=== PATIENT | female | born 1955 | race Caucasian/White ===

== ENCOUNTER 2021-02-16 11:21 | Inpatient (IN) | payer MEDICAID, OTHER ==
[~2021-02-16] VITALS: Ht 165.1 cm; Wt 103.9 kg
--- NOTE | 2021-02-16 11:45 | NUR ---
REJI FROM [facility]. TO ER BED 12. AAOX4. NOT IN RESP DISTRESS. BROUGHT IN FOR BILAT LOWER EXTREMETIES WEEPING EDEMA. PT WAS SENT BY PMD FOR FURTHER EVALUATION. NOTED @ 4 EDEMA WITH CLEAR FLUID WEEPING. AT BEDSIDE FOR EVAL. AWAITING ORDERS
[2021-02-16] MEDS ORDERED: CLINDAMYCIN 600 MG in IV D5W 100 ML IV ONE (12:00)
[2021-02-16] MEDS ORDERED: FUROSEMIDE 40 MG/4 ML VIAL IV ONE (12:00)
[2021-02-16] MEDS ORDERED: FURO-144 PO (12:10)
[2021-02-16] MEDS ORDERED: ATOR80TA PO (12:10)
[2021-02-16] MEDS ORDERED: OMEG1CAP55 PO (12:10)
[2021-02-16] MEDS ORDERED: MAG-55 PO (12:10)
[2021-02-16] MEDS ORDERED: CARV12.5 PO (12:10)
[2021-02-16] MEDS ORDERED: CALC-853 PO (12:10)
[2021-02-16] MEDS ORDERED: TRAM50TA2 PO ×2 (12:10)
[2021-02-16] MEDS ORDERED: LORA-259 PO (12:10)
[2021-02-16] MEDS ORDERED: CLOP75TA15 PO (12:10)
[2021-02-16] MEDS ORDERED: SPIR25TA6 PO (12:10)
[2021-02-16] MEDS ORDERED: DOCU-141 PO (12:10)
[2021-02-16] MEDS ORDERED: LOSA25TA27 PO (12:10)
[2021-02-16] MEDS ORDERED: ASCO500C17 PO (12:10)
[2021-02-16] MEDS ORDERED: BISA10SU11 RC (12:10)
[2021-02-16] MEDS ORDERED: MAGN400O6 PO (12:10)
[2021-02-16] MEDS ORDERED: ASPI-1169 PO (12:10)
[2021-02-16] MEDS ORDERED: BIOT1CAP3 PO (12:10)
[2021-02-16] MEDS ORDERED: LEVO500T90 PO (12:10)
[2021-02-16] MEDS ORDERED: AMIN887L PO (12:10)
[2021-02-16] MEDS ORDERED: CYAN-51 PO (12:10)
[2021-02-16] MEDS ORDERED: NA P133E RC (12:10)
[2021-02-16] MEDS ORDERED: INSU100V3 IJ (12:10)
[2021-02-16] MEDS ORDERED: CRAN425C6 PO (12:10)
[2021-02-16] MEDS ORDERED: LOPE2TAB25 PO (12:10)
[2021-02-16] MEDS ORDERED: CHOL200013 PO (12:10)
[2021-02-16] MEDS ORDERED: ZINC220C6 PO (12:10)
[2021-02-16] MEDS ORDERED: MIRT-121 PO (12:10)
[2021-02-16] MEDS ORDERED: MULT-447 PO (12:10)
[2021-02-16] MEDS ORDERED: SACC250C PO (12:10)
[2021-02-16] MEDS ORDERED: FUROSEMIDE 40 MG/4 ML VIAL ONE (12:19)
[2021-02-16 12:21] LABS: BASOPHILS % (AUTO) 0.3 % (0.0-2.0); EOSINOPHILS % (AUTO) 0.5 % (0.0-6.0); HEMATOCRIT 39 % (33-45); HEMOGLOBIN 12.2 g/dL (11.5-14.8); LYMPHOCYTES # (AUTO) 0.6 /CMM (0.8-4.8); LYMPHOCYTES % (AUTO) 10.3 % (20.0-44.0); MEAN CORPUSCULAR HGB CONC 31 g/dl (31.0-36.0); MEAN CORPUSCULAR VOLUME 88 fL (82-100); MONOCYTES # (AUTO) 0.4 /CMM (0.1-1.30); MONOCYTES % (AUTO) 7.6 % (2.0-12.0); NEUTROPHILS # (AUTO) 4.7 /CMM (1.8-8.9); NEUTROPHILS % (AUTO) 81.3 % (43.0-81.0); PLATELET COUNT (AUTO) 202 /CMM (150-450); RED BLOOD CELL COUNT(AUTO) 4.44 MIL/uL (4.0-5.2); WHITE BLOOD COUNT (AUTO) 5.7 K/uL (4.3-11.0)
[2021-02-16 12:28] LABS: CALCIUM, SERUM 9.1 mg/dL (8.5-10.1); CREATININE 1.2 mg/dL (0.6-1.3); POTASSIUM 3.9 mmol/L (3.5-5.1)
--- NOTE | 2021-02-16 12:57 | NUR ---
CALLED [facility].
--- NOTE | 2021-02-16 13:17 | NUR ---
COVID SWAB DONE AND SENT TO LAB
--- NOTE | 2021-02-16 13:21 | NUR ---
PT AMBULATED TO BATHROOM AND GOT SOB AND SATTING @ 91% AFTER SHE GOT BACK IN BED. PLACED ON 02 VIA NC @ 2LPM. AWARE
--- NOTE | 2021-02-16 13:49 | NUR ---
NURSING SUP GAVE TELE 108.
--- NOTE | 2021-02-16 14:39 | NUR ---
report given to JEREMIAH Carranza for coreen
--- NOTE | 2021-02-16 15:06 | NUR ---
pt transported to unit on gurney with emt and rn at bedside w/ acls rptocol. nad noted during transport. pt ambulate from gurney to bed without assist on steady gait
[2021-02-16 16:47] VITALS: BP 128/77
[2021-02-16] MEDS ORDERED: DEXTROSE 50%-WATER 50 ML DISP.SYRIN IV PRN (17:30)
[2021-02-16] MEDS ORDERED: ACETAMINOPHEN 325 MG TABLET PO PRN (17:30)
[2021-02-16] MEDS ORDERED: MAGNESIUM HYDROXIDE 30 ML UDC PO PRN (17:30)
[2021-02-16] MEDS ORDERED: HYDROCODONE/APAP 10/325MG TABLET PO PRN (17:30)
[2021-02-16] MEDS ORDERED: BISACODYL SUPP (10 MG) 10 MG/SUPP.RECT SUPP.RECT RC PRN (17:30)
[2021-02-16] MEDS ORDERED: ONDANSETRON HCL/PF 4 MG/2 ML VIAL IVP PRN (17:30)
[2021-02-16] MEDS ORDERED: NA PHOS,M-B/NA PHOS,DI-BA 1 EA ENEMA RC PRN (17:30)
[2021-02-16] MEDS ORDERED: Z GUARD REMEDY 2 OZ OINT TP PRN (17:30)
[2021-02-16] MEDS: BLOOD SUGAR DIAGNOSTIC 1 EACH STRIP VI SCH ×2 (18:01→22:11)
[2021-02-16] MEDS ORDERED: VANCOMYCIN 1.5 GM in IV D5W 500 ML IV ONE (18:30)
--- NOTE | 2021-02-16 19:06 | NUR ---
PATIENT RECEIVED FROM ER. VITAL SIGNS TAKEN. SKIN ASSESSMENT PERFORMED WITH BILATERAL LOWER EXTREMITY PITTING WEEPING EDEMA NOTED. SAFETY PRECAUTIONS IMPLEMENTED, SIDE RAILS UP X2, CALL LIGHT WITHIN REACH. WILL ENDORSE CARE TO UPCOMING SHIFT
--- NOTE | 2021-02-16 19:30 | NUR ---
INSPECTOR PUBLICATIONS OPENING NOTE RECEIVED PATIENT IN BED. A/OX4. TOLERATING ROOM AIR. RESPIRATIONS ARE EVEN AND UNLABORED. NO S/S SOB NOTED. NO C/O PAIN AT THIS TIME. EXTERNAL TELE MONITOR READS 100% V-PACING HR 77. IN NO APPARENT DISTRESS. IV ACCESS RUNNING VANCO @250ML/HR. BED IS LOW AND LOCKED, HOB ELEVATED IN SEMI FOWLERS, SIDE RIALS UP X2, CALL LIGHT WITHIN REACH. WILL CONTINUE TO MONITOR THROUGHOUT SHIFT.
[2021-02-16 20:00] VITALS: BP 110/62
[2021-02-16] MEDS ORDERED: POTASSIUM CHLORIDE 20 MEQ TAB.PRT.SR PO ONE (21:00)
[2021-02-16] MEDS ORDERED: BUMETANIDE INJ 8 MG in IV NS 0.9% 48 ML IV ONE (21:00)
[2021-02-16] MEDS: DOCUSATE SODIUM 100 MG CAPSULE PO SCH (22:00)
[2021-02-16] MEDS: MIRTAZAPINE 15 MG TABLET PO SCH (22:00)
[2021-02-16] MEDS: ATORVASTATIN 40 MG TABLET PO SCH (22:00)
[2021-02-16] MEDS: *INSULIN REGULAR(HUMULIN R)HUM 100 UNIT/ML VIAL SQ PRN (22:23)
--- NOTE | 2021-02-16 22:34 | NUR ---
RADIAL DRILL PRESS OPERATOR NOTE INFORMED REFRIGERATION BRAZER/SOLDERER INTERNATIONAL TAX MANAGER CITLALI DENSON THAT PATIENT IS IN PAIN. HS TRAMADOL 25MG DAILY PRN BUT STARTS TOMORROW 0900. TELEPHONE ORDER OK TO START NOW. ORDER READ BACK NOTED AND CARRIED OUT.
[2021-02-16] MEDS: TRAMADOL HCL 50 MG TABLET PO PRN (22:49)
[2021-02-17] VITALS: BP 105/70
[2021-02-17 04:00] VITALS: BP 104/73
[2021-02-17] MEDS: MAGNESIUM HYDROXIDE 30 ML UDC PO PRN (04:36)
[2021-02-17] MEDS: MAG HYDROX/AL HYDROX/SIMETH 30 ML UDC PO PRN ×2 (05:51→22:30)
[2021-02-17 06:07] LABS: BASOPHILS % (AUTO) 0.3 % (0.0-2.0); EOSINOPHILS % (AUTO) 0.9 % (0.0-6.0); HEMATOCRIT 40 % (33-45); HEMOGLOBIN 12.5 g/dL (11.5-14.8); LYMPHOCYTES # (AUTO) 0.7 /CMM (0.8-4.8); LYMPHOCYTES % (AUTO) 10.4 % (20.0-44.0); MEAN CORPUSCULAR HGB CONC 31 g/dl (31.0-36.0); MEAN CORPUSCULAR VOLUME 88 fL (82-100); MONOCYTES # (AUTO) 0.5 /CMM (0.1-1.30); MONOCYTES % (AUTO) 8.5 % (2.0-12.0); NEUTROPHILS # (AUTO) 5.1 /CMM (1.8-8.9); NEUTROPHILS % (AUTO) 79.9 % (43.0-81.0); PLATELET COUNT (AUTO) 196 /CMM (150-450); RED BLOOD CELL COUNT(AUTO) 4.51 MIL/uL (4.0-5.2); WHITE BLOOD COUNT (AUTO) 6.3 K/uL (4.3-11.0)
[2021-02-17 06:17] LABS: CALCIUM, SERUM 9.2 mg/dL (8.5-10.1); CREATININE 1.1 mg/dL (0.6-1.3); MAGNESIUM 1.7 mg/dL (1.8-2.4); PHOSPHORUS 3.8 mg/dL (2.5-4.9); POTASSIUM 3.9 mmol/L (3.5-5.1)
--- NOTE | 2021-02-17 06:31 | NUR ---
MANAGER MILITARY CLOSING NOTE PATIENT RESTING IN BED. A/OX4. REMAINS TOLERATING ROOM AIR.NO RESP DISTRESS. MANAGED PAIN WITH TRAMADOL. NO DISTRESS. IV ACCESS MAINTAINED IN RAC#20. BED REMAINS LOW AND LOCKED, HOB ELEVATED IN SEMI FOWLERS, SIDE RIALS UP X2, CALL LIGHT WITHIN REACH. WILL ENDORSE TO ONCOMING SHIFT.
[2021-02-17] MEDS: BLOOD SUGAR DIAGNOSTIC 1 EACH STRIP VI SCH ×4 (07:46→22:26)
[2021-02-17] MEDS: INSULIN REGULAR, HUMAN 100 UNIT/ML 3 ML VIAL SQ PRN ×2 (07:48→12:42)
[2021-02-17] MEDS: FUROSEMIDE 40 MG TABLET PO SCH (08:31)
[2021-02-17] MEDS: ZINC SULFATE 220 MG CAPSULE PO SCH (08:31)
[2021-02-17] MEDS: CLOPIDOGREL BISULFATE 75 MG TABLET PO SCH (08:31)
[2021-02-17] MEDS: ASPIRIN 81 MG TAB.CHEW PO SCH (08:31)
[2021-02-17] MEDS: SPIRONOLACTONE 25 MG TABLET PO SCH (08:31)
[2021-02-17] MEDS: CARVEDILOL 12.5 MG TABLET PO SCH ×2 (08:33→17:00)
[2021-02-17] MEDS: LOSARTAN POTASSIUM 25 MG TABLET PO SCH (08:33)
--- NOTE | 2021-02-17 08:33 | NUR ---
WOUND CARE CONSULT: REVIEWED CHART, NURSING DOCUMENTATION AND PHOTOS WHICH INDICATE LESIONS AND REDNESS TO LOWER LEGS, PRESENT ON ADMISSION. RECOMMEND DPM CONSULT. DR LANCASTER NOTIFIED OF CONSULT REQUEST. IN AGREEMENT WITH PLAN OF CARE. CURRENT JENNIFER SCORE IS 20.
[2021-02-17] MEDS ORDERED: TRAMADOL HCL 50 MG TABLET PO PRN (09:00)
[2021-02-17] MEDS: POTASSIUM CHLORIDE 20 MEQ TAB.PRT.SR PO SCH ×3 (11:05→12:50)
[2021-02-17] MEDS: Magnesium 1GM/D5W 100ML PREMIX 100 ML IV SCH ×2 (11:05→11:48)
[2021-02-17] MEDS: FUROSEMIDE 40 MG/4 ML VIAL IV SCH ×3 (11:05→18:05)
[2021-02-17] MEDS: VANCOMYCIN 1 GM in IV D5W 250 ML IV SCH (12:58)
[2021-02-17] MEDS: TRAMADOL HCL 50 MG TABLET PO PRN (18:08)
--- NOTE | 2021-02-17 19:06 | NUR ---
MS RN CLOSING NOTE PATIENT CURRENTLY RESTING IN BED, HIGH FOWLERS, LEGS ELEVATED WITH PILLOWS. A/O X4. ON ROOM AIR - TOLERATING WELL. NO RESPIRATORY DISTRESS NOTED, NO PAIN NOTED AT THIS TIME. TRAMADOL GIVEN AROUND 1800. IV ACCESS TO RIGHT AC #20 - INTACT AND PATENT, SALINE LOCKED. ON LASIX TID. SAFETY PRECAUTIONS IMPLEMENTED. CALL LIGHT WITHIN REACH. WILL ENDORSE TO VEGETABLE TRIMMER NURSE.
--- NOTE | 2021-02-17 19:30 | NUR ---
RN NOTES RECEIVED PT IN BED, ALERT AND ORIENTED X4. NOT IN ANY DISTRESS. PATIENT DENIES ANY PAIN. IV ON RAC INFILTRATED, REMOVED OLD IV. REINSERTED NEW ON RHAND 22G, WITH GOOD BLOOD RETURN, FLUSHES WELL. NOTED SWELLING/REDNESS WITH DRAINAGE ON BILATERAL LEGS. KEPT ELEVATED. ALL SAFETY MEASURES IMPLEMENTED PER PROTOCOL. CALL LIGHT WITHIN REACH. BED LOCKED IN LOWEST POSITION. WILL CONTINUE TO MONITOR.
[2021-02-17 20:00] VITALS: BP 119/75
[2021-02-17] MEDS: MIRTAZAPINE 15 MG TABLET PO SCH (22:00)
[2021-02-17] MEDS: ATORVASTATIN 40 MG TABLET PO SCH (22:00)
[2021-02-17] MEDS: DOCUSATE SODIUM 100 MG CAPSULE PO SCH (22:00)
[2021-02-17] MEDS: *INSULIN REGULAR(HUMULIN R)HUM 100 UNIT/ML VIAL SQ PRN (22:28)
--- NOTE | 2021-02-17 22:36 | NUR ---
RN NOTE PATIENT REFUSED TO TAKE SCHEDULED MEDS. EXPLAINED RISKS AND BENEFITS, PT AWARE, VERBALIZES UNDERSTANDING. PT REQUESTED FOR MAALOX DUE TO GI UPSET. WILL CONTINUE TO MONITOR.
[2021-02-18 04:00] VITALS: BP 103/72
[2021-02-18] MEDS: VANCOMYCIN 1 GM in IV D5W 250 ML IV SCH (05:46)
[2021-02-18 06:40] LABS: BASOPHILS % (AUTO) 0.5 % (0.0-2.0); EOSINOPHILS % (AUTO) 1.7 % (0.0-6.0); HEMATOCRIT 37 % (33-45); HEMOGLOBIN 11.7 g/dL (11.5-14.8); LYMPHOCYTES % (AUTO) 20.5 % (20.0-44.0); MEAN CORPUSCULAR HGB CONC 32 g/dl (31.0-36.0); MEAN CORPUSCULAR VOLUME 88 fL (82-100); MONOCYTES # (AUTO) 0.7 /CMM (0.1-1.30); MONOCYTES % (AUTO) 13.1 % (2.0-12.0); NEUTROPHILS # (AUTO) 3.2 /CMM (1.8-8.9); NEUTROPHILS % (AUTO) 64.2 % (43.0-81.0); PLATELET COUNT (AUTO) 179 /CMM (150-450); RED BLOOD CELL COUNT(AUTO) 4.18 MIL/uL (4.0-5.2)
--- NOTE | 2021-02-18 06:56 | NUR ---
RN NOTE PT SLEEPING, AROUSES EASILY. NO SIGNS OF DISTRESS NOTED. DENIES PAIN AT THIS TIME. WOUND DRESSING ON BLE CLEAN DRY AND INTACT. DUE IV ATB GIVEN. IV ON RHAND REMAIN PATENT, NO SIGNS OF INFILTRATION NOTED. PT ABLE TO MAKE NEEDS KNOWN. NEEDS ATTENDED. REMAIN AFEBRILE. PT ABLE TO AMBULATE TO RESTROOM. WILL ENDORSE TO NEXT SHIFT NURSE FOR RAJI.
[2021-02-18 07:13] LABS: THYROID STIMULATING HORMONE 3.359 uIU/mL (0.358-3.74); URIC ACID 10.2 mg/dL (2.6-7.2)
[2021-02-18 07:30] LABS: CALCIUM, SERUM 8.8 mg/dL (8.5-10.1); CREATININE 1.2 mg/dL (0.6-1.3); MAGNESIUM 2.2 mg/dL (1.8-2.4); PHOSPHORUS 4.1 mg/dL (2.5-4.9); POTASSIUM 3.4 mmol/L (3.5-5.1)
[2021-02-18 08:00] VITALS: BP 113/79
[2021-02-18] MEDS: ZINC SULFATE 220 MG CAPSULE PO SCH (08:16)
[2021-02-18] MEDS: LOSARTAN POTASSIUM 25 MG TABLET PO SCH (08:16)
[2021-02-18] MEDS: CLOPIDOGREL BISULFATE 75 MG TABLET PO SCH (08:17)
[2021-02-18] MEDS: ASPIRIN 81 MG TAB.CHEW PO SCH (08:17)
[2021-02-18] MEDS: FUROSEMIDE 40 MG TABLET PO SCH (08:17)
[2021-02-18] MEDS: CARVEDILOL 12.5 MG TABLET PO SCH ×2 (08:17→16:21)
[2021-02-18] MEDS: SPIRONOLACTONE 25 MG TABLET PO SCH (08:17)
[2021-02-18] MEDS: BLOOD SUGAR DIAGNOSTIC 1 EACH STRIP VI SCH ×4 (08:22→23:03)
--- NOTE | 2021-02-18 09:47 | NUR ---
RN OPENING NOTE Received patient awake in bed appears calm and relaxed. No signs of distress. On room air tolerating well. Patient is AOx4 R hand #22 flushes well. Noted with bilateral lower extremities dressing with Kerlix wrap. Safety measures maintained. Will cont to monitor.
[2021-02-18] MEDS: ALLOPURINOL 100 MG TABLET PO SCH (10:31)
[2021-02-18] MEDS: POTASSIUM CHLORIDE 20 MEQ TAB.PRT.SR PO SCH ×3 (10:32→13:16)
[2021-02-18] MEDS: FUROSEMIDE 100 MG/10 ML VIAL IV SCH ×3 (10:32→18:08)
[2021-02-18] MEDS: INSULIN REGULAR, HUMAN 100 UNIT/ML 3 ML VIAL SQ PRN ×2 (12:00→17:42)
--- NOTE | 2021-02-18 12:25 | NUR ---
called LAB to parts picker urine in fridge
--- NOTE | 2021-02-18 13:52 | NUR ---
PATIENT WANTS BOTH ARTERIAL AND VENOUS LOWER EXTREMITY EXAMS BE DONE TOMORROW SINCE HER LEGS HAVE BANDAGES AND WRAPPED FROM KNEE DOWN. ADVISED TRACK LAYER AMY.
[2021-02-18 16:00] VITALS: BP 104/63
--- NOTE | 2021-02-18 19:30 | NUR ---
MS 1 RN NOTES RECEIVED ON BED ON HIGH FOWLERS POSITION WATCHING TV PROGRAM,BREATHING REGULAR,NOT IN ANY FORM OF DISTRESS.DRESSING INTACT AND DRY ON BOTH LEGS,ELEVATED ON PILLOWS.SALINE LOCK RIGHT HAND INTACT AND PATENT.DENIES DISCOMFORTS AT THE MOMENT.CALL LIGHT IN REACH,NEEDS ANTICIPATED.
[2021-02-18] MEDS: MUPIROCIN OINT 2% 22 GM TUBE NS SCH (20:30)
--- NOTE | 2021-02-18 21:00 | NUR ---
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
[2021-02-18] MEDS: ATORVASTATIN 40 MG TABLET PO SCH (21:40)
[2021-02-18] MEDS: DOCUSATE SODIUM 100 MG CAPSULE PO SCH (21:40)
[2021-02-18] MEDS: MIRTAZAPINE 15 MG TABLET PO SCH (21:40)
[2021-02-18] MEDS: MAG HYDROX/AL HYDROX/SIMETH 30 ML UDC PO PRN (21:49)
--- NOTE | 2021-02-18 21:49 | NUR ---
MS1 RN NOTES C/O STOMACH UPSET,MAALOX 30ML PO GIVEN PER PATIENT REQUEST WITH ORDER,
[2021-02-18] MEDS: TRAMADOL HCL 50 MG TABLET PO PRN (21:50)
--- NOTE | 2021-02-18 21:50 | NUR ---
MS1 RN NOTES PAIN MANAGEMENT C/O PAIN ON BOTH LEGS,TRAMADOL 25MG PO GIVEN ORDERED
--- NOTE | 2021-02-18 22:00 | NUR ---
MS1 RN NOTES REFUSED COLACE,CLAIMED SHE HAD BOWEL MOVEMENT NON DIARRHEA TODAY.
--- NOTE | 2021-02-18 23:09 | NUR ---
MS1 RN NOTES ACCU-CHECK BLOOD SUGAR CHECK 125, NO INSULIN COVERAGE.
[2021-02-19] MEDS: VANCOMYCIN 1 GM in IV D5W 250 ML IV SCH ×2 (01:01→18:29)
--- NOTE | 2021-02-19 01:30 | NUR ---
MS1 RN NOTES DRESSING DONE ON BILATERAL LOWER EXTREMITIES,ELEVATED ON PILLOWS
[2021-02-19 04:00] VITALS: BP 97/59
[2021-02-19 06:39] LABS: BASOPHILS % (AUTO) 0.5 % (0.0-2.0); EOSINOPHILS % (AUTO) 1.9 % (0.0-6.0); HEMATOCRIT 37 % (33-45); HEMOGLOBIN 11.7 g/dL (11.5-14.8); LYMPHOCYTES # (AUTO) 0.8 /CMM (0.8-4.8); LYMPHOCYTES % (AUTO) 15.9 % (20.0-44.0); MEAN CORPUSCULAR HGB CONC 31 g/dl (31.0-36.0); MEAN CORPUSCULAR VOLUME 88 fL (82-100); MONOCYTES # (AUTO) 0.5 /CMM (0.1-1.30); MONOCYTES % (AUTO) 10.6 % (2.0-12.0); NEUTROPHILS # (AUTO) 3.4 /CMM (1.8-8.9); NEUTROPHILS % (AUTO) 71.1 % (43.0-81.0); PLATELET COUNT (AUTO) 174 /CMM (150-450); RED BLOOD CELL COUNT(AUTO) 4.21 MIL/uL (4.0-5.2); WHITE BLOOD COUNT (AUTO) 4.8 K/uL (4.3-11.0)
--- NOTE | 2021-02-19 06:49 | NUR ---
MS1 RN NOTES ON BED,SLEPT WITH INTERVALS,PAIN MANAGEMENT EFFECTIVE,AMBULATE WITH STEADY GAIT TO THE RESTROOM.CALL LIGHT IN REACH,NEEDS ATTENDED.
[2021-02-19 06:55] LABS: CALCIUM, SERUM 8.7 mg/dL (8.5-10.1); CREATININE 1.3 mg/dL (0.6-1.3); POTASSIUM 3.5 mmol/L (3.5-5.1)
[2021-02-19 08:00] VITALS: BP 94/53
[2021-02-19] MEDS: BLOOD SUGAR DIAGNOSTIC 1 EACH STRIP VI SCH ×4 (09:00→21:40)
[2021-02-19] MEDS: CLOPIDOGREL BISULFATE 75 MG TABLET PO SCH (09:00)
[2021-02-19] MEDS: ALLOPURINOL 100 MG TABLET PO SCH (09:00)
[2021-02-19] MEDS: ASPIRIN 81 MG TAB.CHEW PO SCH (09:00)
[2021-02-19] MEDS: LOSARTAN POTASSIUM 25 MG TABLET PO SCH (09:00)
[2021-02-19] MEDS: SPIRONOLACTONE 25 MG TABLET PO SCH (09:00)
[2021-02-19] MEDS: ZINC SULFATE 220 MG CAPSULE PO SCH (09:00)
[2021-02-19] MEDS: CARVEDILOL 12.5 MG TABLET PO SCH ×2 (09:00→18:29)
[2021-02-19] MEDS: MUPIROCIN OINT 2% 22 GM TUBE NS SCH ×2 (09:01→20:30)
[2021-02-19] MEDS ORDERED: FUROSEMIDE 100 MG/10 ML VIAL IV SCH (09:30)
[2021-02-19] MEDS: MAGNESIUM HYDROXIDE 30 ML UDC PO PRN (09:30)
[2021-02-19] MEDS: MAG HYDROX/AL HYDROX/SIMETH 30 ML UDC PO PRN (09:30)
[2021-02-19] MEDS: POTASSIUM CHLORIDE 20 MEQ TAB.PRT.SR PO SCH ×3 (11:18→12:22)
[2021-02-19] MEDS: INSULIN REGULAR, HUMAN 100 UNIT/ML 3 ML VIAL SQ PRN ×2 (11:36→21:43)
[2021-02-19 12:00] VITALS: BP 104/61
[2021-02-19] MEDS ORDERED: BIOTIN 1 MG PO SCH (12:00)
[2021-02-19] MEDS ORDERED: BUMETANIDE INJ 6 MG in IV NS 0.9% 36 ML IV ONE (12:00)
[2021-02-19] MEDS ORDERED: METOLAZONE 2.5 MG TABLET PO ONE (12:00)
[2021-02-19] MEDS: CHOLECALCIFEROL 1,000 UNIT TABLET (VIT D3) PO SCH (12:22)
[2021-02-19] MEDS: ASCORBIC ACID 500 MG TABLET PO SCH (12:22)
[2021-02-19] MEDS: MULTIVITAMINS,THERAGRAN 1 UDTAB TABLET PO SCH (12:25)
[2021-02-19] MEDS: MAGNESIUM OXIDE 400 MG TABLET PO SCH ×2 (12:25→21:19)
[2021-02-19 16:00] VITALS: BP 113/76
--- NOTE | 2021-02-19 19:00 | NUR ---
RN OPENING NOTE RECEIVED PATIENT IN BED RESTING ALERT ORIENTED X4 VERBALLY RESPONSIVE ON ROOM AIR O2:98% ON MED SURG MONITORING IV SITE IS ON RIGHT HAND INFILTRATED,CONTINENT TO BOWEL/BLADDER AMBULATORY WITH ASSIST,BILATERAL LOWER EXTREMITIES CELLULITES,BED IN LOW POSITION AND LOCKED,BED ALARM IS ON,CALL LIGHT WITHIN REACH CONTINUE TO MONITOR.
[2021-02-19] MEDS: LORAZEPAM 0.5 MG TABLET PO PRN (19:47)
--- NOTE | 2021-02-19 21:00 | NUR ---
RN NOTE RIGHT HAND IV REMOVED STARTED A NEW IV LINE ON LEFT NECK G #20 INTACT PATENT FLUSHED CONTINUE TO MONITOR.
[2021-02-19] MEDS: TRAMADOL HCL 50 MG TABLET PO PRN (21:30)
[2021-02-19] MEDS: ATORVASTATIN 40 MG TABLET PO SCH (21:32)
[2021-02-19] MEDS: DOCUSATE SODIUM 100 MG CAPSULE PO SCH (21:36)
[2021-02-19] MEDS: MIRTAZAPINE 15 MG TABLET PO SCH (22:00)
[2021-02-19] MEDS: TRAZODONE 50 MG TABLET PO SCH (22:18)
--- NOTE | 2021-02-19 22:22 | NUR ---
RN NOTE PATIENT REFUSED TO TAKE REMERON AND COLACE AT 22:00 EXPLAINED RISKS AND BENEFITS STILL REFUSED,CONTINUE TO MONITOR
[2021-02-20] VITALS: BP 108/73
[2021-02-20 05:52] LABS: BASOPHILS % (AUTO) 0.4 % (0.0-2.0); EOSINOPHILS % (AUTO) 1.6 % (0.0-6.0); HEMATOCRIT 39 % (33-45); HEMOGLOBIN 12.2 g/dL (11.5-14.8); LYMPHOCYTES # (AUTO) 0.7 /CMM (0.8-4.8); MEAN CORPUSCULAR HGB CONC 32 g/dl (31.0-36.0); MEAN CORPUSCULAR VOLUME 88 fL (82-100); MONOCYTES # (AUTO) 0.6 /CMM (0.1-1.30); MONOCYTES % (AUTO) 10.5 % (2.0-12.0); NEUTROPHILS # (AUTO) 4.2 /CMM (1.8-8.9); NEUTROPHILS % (AUTO) 75.5 % (43.0-81.0); PLATELET COUNT (AUTO) 187 /CMM (150-450); RED BLOOD CELL COUNT(AUTO) 4.39 MIL/uL (4.0-5.2); WHITE BLOOD COUNT (AUTO) 5.5 K/uL (4.3-11.0)
[2021-02-20 06:24] LABS: BILIRUBIN,TOTAL 2.4 mg/dL (0.2-1.0); CALCIUM, SERUM 9.4 mg/dL (8.5-10.1); CREATININE 1.4 mg/dL (0.6-1.3); MAGNESIUM 2.3 mg/dL (1.8-2.4); PHOSPHORUS 3.9 mg/dL (2.5-4.9)
--- NOTE | 2021-02-20 07:13 | NUR ---
RN CLOSING NOTE PATIENT REMAINS ON ALERT ORIENTED X4 VERBALLY RESPONSIVE NO SOB NOT ACUTE DISTRESS NOTED,O2:98% ALL DUE MEDS GIVEN MD ORDERED KEEP CLEAN AND DRY ALL THE TIME,ALL NEEDS MET ENDORSE NEXT COMING SHIFT FOR CONTINUATION OF CARE.
--- NOTE | 2021-02-20 07:30 | NUR ---
RN OPENING NOTE RECEIVED REPORT FROM PM NURSE.PATIENT IN RESTROOM.AXOX4.ON ROOM AIR.NO SOB NO DISTRESS NOTED.BILATERAL LOWER EXTREMITY SWELLING.BRP.IV LINE IS INTACT AND PATENT.CALL LIGHT IN REACH.SAFETY MEASURES IN PLACE.WILL CONTINUE TO MONITOR.
[2021-02-20] MEDS: INSULIN REGULAR, HUMAN 100 UNIT/ML 3 ML VIAL SQ PRN ×3 (07:49→17:00)
[2021-02-20] MEDS: BLOOD SUGAR DIAGNOSTIC 1 EACH STRIP VI SCH ×4 (07:51→21:46)
[2021-02-20 08:00] VITALS: BP 112/77
[2021-02-20] MEDS: ASPIRIN 81 MG TAB.CHEW PO SCH (09:27)
[2021-02-20] MEDS: CLOPIDOGREL BISULFATE 75 MG TABLET PO SCH (09:27)
[2021-02-20] MEDS: BUMETANIDE (1 MG) 1 MG TABLET PO SCH (09:27)
[2021-02-20] MEDS: MULTIVITAMINS,THERAGRAN 1 UDTAB TABLET PO SCH (09:27)
[2021-02-20] MEDS: ASCORBIC ACID 500 MG TABLET PO SCH (09:28)
[2021-02-20] MEDS: CHOLECALCIFEROL 1,000 UNIT TABLET (VIT D3) PO SCH (09:30)
[2021-02-20] MEDS: SPIRONOLACTONE 25 MG TABLET PO SCH (09:42)
[2021-02-20] MEDS: ALLOPURINOL 100 MG TABLET PO SCH (09:42)
[2021-02-20] MEDS: ZINC SULFATE 220 MG CAPSULE PO SCH (09:42)
[2021-02-20] MEDS: LOSARTAN POTASSIUM 25 MG TABLET PO SCH (09:43)
[2021-02-20] MEDS: CARVEDILOL 12.5 MG TABLET PO SCH ×2 (09:43→16:44)
[2021-02-20] MEDS: MUPIROCIN OINT 2% 22 GM TUBE NS SCH ×2 (09:54→21:32)
[2021-02-20] MEDS: VANCOMYCIN 1 GM in IV D5W 250 ML IV SCH (12:05)
--- NOTE | 2021-02-20 12:06 | NUR ---
RN NOTE LAST VANCO TROUGH DONE ON 02/18.PHARMACY MADE AWARE.OK TO GIVE IT.NEXT LEVEL CHECK TOMORROW.
[2021-02-20 16:00] VITALS: BP 109/63
[2021-02-20] MEDS: MAG HYDROX/AL HYDROX/SIMETH 30 ML UDC PO PRN (16:54)
--- NOTE | 2021-02-20 18:52 | NUR ---
RN NOTE PATIENT IN BED. IN STABLE CONDITION.WILL ENDORSE TO PM NURSE FOR RAJI.
--- NOTE | 2021-02-20 19:20 | NUR ---
MS RN NOTES PT RECEIVED RECEIVED AXOX4.ON ROOM AIR.NO SOB NO DISTRESS NOTED.BILATERAL LOWER EXTREMITY SWELLING NOTED. IV LINE IS INTACT PATENT NO REDNESS OR SWELLING NOTED AT SITE. ALL NURSING NEEDS MET AT THIS TIME.CALL LIGHT IN REACH.SAFETY MEASURES IN PLACE.WILL CONTINUE TO MONITOR.
[2021-02-20] MEDS: TRAMADOL HCL 50 MG TABLET PO PRN (19:35)
--- NOTE | 2021-02-20 19:38 | NUR ---
MS RN NOTES PT REPORTED PAIN OF 3/10 ON A NUMERIC PAIN SCALE PT ASKING FOR PAIN MEDICATION. MEDICATION PROVIDED. ALL NEEDS MET AT THIS TIME. WILL CONTINUE TO MONITOR.
[2021-02-20] MEDS: MAGNESIUM OXIDE 400 MG TABLET PO SCH (21:08)
[2021-02-20] MEDS: ATORVASTATIN 40 MG TABLET PO SCH (21:08)
[2021-02-20] MEDS: DOCUSATE SODIUM 100 MG CAPSULE PO SCH (21:08)
[2021-02-20] MEDS: TRAZODONE 50 MG TABLET PO SCH (21:09)
[2021-02-20] MEDS: MIRTAZAPINE 15 MG TABLET PO SCH (21:09)
[2021-02-20] MEDS: *INSULIN REGULAR(HUMULIN R)HUM 100 UNIT/ML VIAL SQ PRN (21:50)
--- NOTE | 2021-02-20 23:42 | NUR ---
MS RN NOTES ATTENDED TO PROVIDE WOUND TREATMENT TO PT PT REFUSED X 3 RISK AND BENEFITS EXPLAINED X3 PT STATED " I LIKE TO KEEP MY LEGS OPEN TO AIR I FEEL LIKE THEY HEAL BETTER THAT WAY JUST APPLY THE BETADINE AND LEAVE IT OPEN" WILL CONTINUE TO MONITOR.
[2021-02-21 00:03] VITALS: BP 109/63
[2021-02-21 04:55] VITALS: BP 96/61
[2021-02-21] MEDS: VANCOMYCIN 1 GM in IV D5W 250 ML IV SCH (06:00)
[2021-02-21 06:11] LABS: BASOPHILS % (AUTO) 0.3 % (0.0-2.0); EOSINOPHILS % (AUTO) 1.4 % (0.0-6.0); HEMATOCRIT 39 % (33-45); HEMOGLOBIN 12.6 g/dL (11.5-14.8); LYMPHOCYTES # (AUTO) 0.7 /CMM (0.8-4.8); LYMPHOCYTES % (AUTO) 10.9 % (20.0-44.0); MEAN CORPUSCULAR HGB CONC 32 g/dl (31.0-36.0); MEAN CORPUSCULAR VOLUME 87 fL (82-100); MONOCYTES # (AUTO) 0.7 /CMM (0.1-1.30); MONOCYTES % (AUTO) 10.4 % (2.0-12.0); NEUTROPHILS # (AUTO) 4.9 /CMM (1.8-8.9); PLATELET COUNT (AUTO) 180 /CMM (150-450); RED BLOOD CELL COUNT(AUTO) 4.54 MIL/uL (4.0-5.2); WHITE BLOOD COUNT (AUTO) 6.3 K/uL (4.3-11.0)
[2021-02-21 06:24] LABS: CALCIUM, SERUM 9.2 mg/dL (8.5-10.1); CREATININE 1.3 mg/dL (0.6-1.3); MAGNESIUM 1.7 mg/dL (1.8-2.4); PHOSPHORUS 5.3 mg/dL (2.5-4.9); POTASSIUM 3.2 mmol/L (3.5-5.1)
--- NOTE | 2021-02-21 06:35 | NUR ---
MS RN NOTES RECEIVE VANCO TROUGH RESULTS 22 PER ORDER CONTACTED PHARMACIST PER PHARMACIST HOLD VANCO DOSE. WILL CONTINUE TO MONITOR.
--- NOTE | 2021-02-21 06:42 | NUR ---
MS RN NOTES PT AXOX4 ON ROOM AIR.NO SOB NO DISTRESS NOTED.BILATERAL LOWER EXTREMITY SWELLING NOTED. IV LINE IS INTACT PATENT NO REDNESS OR SWELLING NOTED AT SITE. ALL NURSING NEEDS MET THROUGHOUT SHIFT.CALL LIGHT IN REACH.SAFETY MEASURES IN PLACE.WILL ENDORSE CARE TO DAY SHIFT NURSE.
--- NOTE | 2021-02-21 07:20 | NUR ---
RN OPENING NOTE PATIENT RECEIVED IN BED SLEEPING IN SUPINE POSITION. PATIENT ON ROOM AIR TOLERATING WELL. PATIENT ALERT AND ORIENTED AND ABLE TO MAKE NEEDS KNOWN. NO COMPLAINTS OF SOB OR SIGNS OF DISTRESS NOTED. NO COMPLAINTS OF PAIN. LEFT NECK #20 OBINNA NOTED. SAFETY PRECAUTIONS IMPLEMENTED, CALL LIGHT WITHIN REACH, BED LOCKED AND IN LOWEST POSITION, SIDE RAILS UP X2. WILL CONTINUE TO MONITOR AND PROVIDE CARE THROUGHOUT SHIFT.
[2021-02-21] MEDS: BLOOD SUGAR DIAGNOSTIC 1 EACH STRIP VI SCH ×4 (07:30→21:45)
[2021-02-21 08:00] VITALS: BP 88/45
[2021-02-21] MEDS: ALLOPURINOL 100 MG TABLET PO SCH (08:58)
[2021-02-21] MEDS: ASCORBIC ACID 500 MG TABLET PO SCH (08:59)
[2021-02-21] MEDS: SPIRONOLACTONE 25 MG TABLET PO SCH (08:59)
[2021-02-21] MEDS: CHOLECALCIFEROL 1,000 UNIT TABLET (VIT D3) PO SCH (08:59)
[2021-02-21] MEDS: ZINC SULFATE 220 MG CAPSULE PO SCH (08:59)
[2021-02-21] MEDS: CLOPIDOGREL BISULFATE 75 MG TABLET PO SCH (09:00)
[2021-02-21] MEDS: CARVEDILOL 12.5 MG TABLET PO SCH ×2 (09:00→17:00)
[2021-02-21] MEDS: LOSARTAN POTASSIUM 25 MG TABLET PO SCH (09:00)
[2021-02-21] MEDS: MULTIVITAMINS,THERAGRAN 1 UDTAB TABLET PO SCH (09:00)
[2021-02-21] MEDS: ASPIRIN 81 MG TAB.CHEW PO SCH (09:01)
[2021-02-21] MEDS: BUMETANIDE (1 MG) 1 MG TABLET PO SCH (09:01)
[2021-02-21] MEDS: MUPIROCIN OINT 2% 22 GM TUBE NS SCH ×2 (09:02→21:33)
[2021-02-21] MEDS: Magnesium 1GM/D5W 100ML PREMIX 100 ML IV SCH ×2 (11:58→13:26)
[2021-02-21] MEDS: POTASSIUM CHLORIDE 20 MEQ TAB.PRT.SR PO SCH ×2 (11:58→13:19)
[2021-02-21] MEDS: INSULIN REGULAR, HUMAN 100 UNIT/ML 3 ML VIAL SQ PRN ×2 (12:26→17:14)
[2021-02-21] MEDS: VANCOMYCIN 0.75 GM in IV D5W 250 ML IV SCH (14:00)
[2021-02-21] MEDS: LORAZEPAM 0.5 MG TABLET PO PRN (15:40)
[2021-02-21 16:00] VITALS: BP 99/63
[2021-02-21] MEDS: MAG HYDROX/AL HYDROX/SIMETH 30 ML UDC PO PRN (17:05)
--- NOTE | 2021-02-21 19:30 | NUR ---
RN CLOSING NOTE PATIENT IN BED RESTING IN HIGH FOWLERS POSITION. PATIENT ON ROOM AIR TOLERATING WELL. PATIENT ALERT AND ORIENTED AND ABLE TO MAKE NEEDS KNOWN. NO COMPLAINTS OF SOB OR SIGNS OF DISTRESS NOTED. NO COMPLAINTS OF PAIN. LEFT NECK #20 OBINNA NOTED. SAFETY PRECAUTIONS IMPLEMENTED, CALL LIGHT WITHIN REACH, BED LOCKED AND IN LOWEST POSITION, SIDE RAILS UP X2. WILL ENDORSE CARE TO UPCOMING SHIFT.
--- NOTE | 2021-02-21 19:35 | NUR ---
MS/RN OPENING NOTE RECEIVED PATIENT IN BED RESTING. PATIENT IS ALERT AND ORIENTED X 4. PATIENT BREATHING IS EVEN AND UNLABORED, NO SIGNS OF SOB. PATIENT IV ACCESS INTACT FLUSHING WELL. PATIENT IN NO ACUTE DISTRESS. SAFETY MEASURES ARE IN PLACE, BED IS LOCKED AND PLACED IN THE LOW POSITION, CALL LIGHT WITHIN REACH, SIDE RAIL UP X 2. WILL CONTINUE WITH PATIENT PLAN OF CARE.
[2021-02-21] MEDS: MAGNESIUM OXIDE 400 MG TABLET PO SCH (21:32)
[2021-02-21] MEDS: TRAZODONE 50 MG TABLET PO SCH (21:32)
[2021-02-21] MEDS: DOCUSATE SODIUM 100 MG CAPSULE PO SCH (21:32)
[2021-02-21] MEDS: ATORVASTATIN 40 MG TABLET PO SCH (21:33)
[2021-02-21] MEDS: MIRTAZAPINE 15 MG TABLET PO SCH (21:33)
[2021-02-22 04:00] VITALS: BP 103/46
--- NOTE | 2021-02-22 05:32 | NUR ---
MS/RN NOTES REPORT GIVEN TO JEREMIAH OLVERA FOR RAJI
--- NOTE | 2021-02-22 06:04 | NUR ---
MS/RN NOTES PATIENT TRANSFERRED TO ROOM 306-1
--- NOTE | 2021-02-22 06:12 | NUR ---
RN MS NOTES RECEIVED PATIENT IN BED RESTING. PATIENT IS ALERT AND ORIENTED X 4. PATIENT BREATHING IS EVEN AND UNLABORED, NO SIGNS OF SOB. PATIENT IV ACCESS INTACT FLUSHING WELL. PATIENT IN NO ACUTE DISTRESS. SAFETY MEASURES ARE IN PLACE, BED IS LOCKED AND PLACED IN THE LOW POSITION, CALL LIGHT WITHIN REACH, SIDE RAIL UP X 2. PT REQUESTING BLOOD SUGAR BE CHECKED RIGHT BEFORE BREAKFAST WILL ENDORSE TO DAY SHIFT.WILL ENDORSE CARE TO DAY SHIFT NURSE.
[2021-02-22 07:13] LABS: CALCIUM, SERUM 9.2 mg/dL (8.5-10.1); CREATININE 1.6 mg/dL (0.6-1.3); MAGNESIUM 2.2 mg/dL (1.8-2.4); POTASSIUM 3.5 mmol/L (3.5-5.1)
--- NOTE | 2021-02-22 07:15 | NUR ---
MS RN OPENING NOTE RECEIVED PATIENT IN BED. A/O X4. ON ROOM AIR, TOLERATING WELL, NO SOB NOTED. IN NO APPARENT DISTRESS. IV ACCESS ON L NECK #20 G, INTACT. PT VERBALIZING PAIN 10/10 ON HER BOTH LOWER LEGS. BLOOD SUGAR OF 162, 3 UNITS OF INSULIN GIVEN PER PROTOCOL. SAFETY MEASURES MAINTAINED. BED IN LOWEST POSITION, BRAKES LOCKED. SIDE RAILS UP X2. CALL LIGHT WITHIN REACH. WILL CONTINUE PLAN OF CARE.
[2021-02-22] MEDS: BLOOD SUGAR DIAGNOSTIC 1 EACH STRIP VI SCH ×4 (07:33→21:31)
[2021-02-22] MEDS: INSULIN REGULAR, HUMAN 100 UNIT/ML 3 ML VIAL SQ PRN ×2 (07:35→11:44)
[2021-02-22 08:00] VITALS: BP 106/65
[2021-02-22] MEDS: CHOLECALCIFEROL 1,000 UNIT TABLET (VIT D3) PO SCH (08:35)
[2021-02-22] MEDS: SPIRONOLACTONE 25 MG TABLET PO SCH (08:35)
[2021-02-22] MEDS: ASPIRIN 81 MG TAB.CHEW PO SCH (08:35)
[2021-02-22] MEDS: BUMETANIDE (1 MG) 1 MG TABLET PO SCH (08:35)
[2021-02-22] MEDS: MULTIVITAMINS,THERAGRAN 1 UDTAB TABLET PO SCH (08:37)
[2021-02-22] MEDS: CLOPIDOGREL BISULFATE 75 MG TABLET PO SCH (08:37)
[2021-02-22] MEDS: LOSARTAN POTASSIUM 25 MG TABLET PO SCH (08:37)
[2021-02-22] MEDS: CARVEDILOL 12.5 MG TABLET PO SCH ×2 (08:37→16:42)
[2021-02-22] MEDS: ALLOPURINOL 100 MG TABLET PO SCH (08:38)
[2021-02-22] MEDS: ZINC SULFATE 220 MG CAPSULE PO SCH (08:38)
[2021-02-22] MEDS: ASCORBIC ACID 500 MG TABLET PO SCH (08:38)
[2021-02-22] MEDS: MUPIROCIN OINT 2% 22 GM TUBE NS SCH ×2 (09:00→21:19)
[2021-02-22] MEDS ORDERED: BISACODYL SUPP (10 MG) 10 MG/SUPP.RECT SUPP.RECT RC PRN (10:47)
[2021-02-22] MEDS: VANCOMYCIN 0.75 GM in IV D5W 250 ML IV SCH (14:12)
--- NOTE | 2021-02-22 18:00 | NUR ---
MS RN CLOSING NOTE PATIENT RESTING IN BED. A/O X4. AMBULATORY WITH A WALKER. ON ROOM AIR, TOLERATING WELL, NO SOB NOTED. NO S/S OF RESPIRATORY DISTRESS. IV ACCESS ON L NECK #20 G, INTACT AND PATENT. BLOOD SUGAR OF 124, NO INSULIN COVERAGE. BOTH LEGS KEPT ELEVATED. WOUND TREATMENT ORDERED. ALL DUE MEDS GIVEN ORDERED. ALL NEEDS HAVE BEEN MET AND ATTENDED. SAFETY MEASURES MAINTAINED. BED IN LOWEST POSITION, BRAKES LOCKED. SIDE RAILS UP X2. CALL LIGHT WITHIN REACH. WILL ENDORSE CONTINUITY OF CARE TO ONCOMING SHIFT.
--- NOTE | 2021-02-22 19:45 | NUR ---
RN NOTES Received pt. sleeping but arousable, a/ox3, noted no DVT pump -pt has bilateral cellulitis, denies pain, no SOB, call light within reach, siderailsupx2, continue to monitor
[2021-02-22 20:00] VITALS: BP_SYST 95; BP_SYST 99; BP_DIAS 54
[2021-02-22] MEDS: MAGNESIUM OXIDE 400 MG TABLET PO SCH (21:30)
[2021-02-22] MEDS: DOCUSATE SODIUM 100 MG CAPSULE PO SCH ×2 (21:30→22:00)
[2021-02-22] MEDS: ATORVASTATIN 40 MG TABLET PO SCH (21:30)
[2021-02-22] MEDS: TRAZODONE 50 MG TABLET PO SCH (21:30)
[2021-02-22] MEDS: MIRTAZAPINE 15 MG TABLET PO SCH ×2 (21:31→22:00)
--- NOTE | 2021-02-22 22:30 | NUR ---
RN NOTES Offered to do the dressing on her bilateral lower extremities- pt. refused,stated she's tired
[2021-02-22] MEDS: *INSULIN REGULAR(HUMULIN R)HUM 100 UNIT/ML VIAL SQ PRN (23:10)
[2021-02-22] MEDS: MAG HYDROX/AL HYDROX/SIMETH 30 ML UDC PO PRN (23:34)
--- NOTE | 2021-02-22 23:35 | NUR ---
RN NOTES COMPLAINED OF STOMACH UPSET, PT ASKED FOR MAALOX- MAALOX 30ML PO GIVEN ORDERED
[2021-02-23 06:10] LABS: CALCIUM, SERUM 9.2 mg/dL (8.5-10.1); CREATININE 1.5 mg/dL (0.6-1.3); POTASSIUM 3.1 mmol/L (3.5-5.1)
[2021-02-23] MEDS: INSULIN REGULAR, HUMAN 100 UNIT/ML 3 ML VIAL SQ PRN ×3 (06:29→18:03)
[2021-02-23] MEDS: BLOOD SUGAR DIAGNOSTIC 1 EACH STRIP VI SCH ×4 (06:33→21:47)
--- NOTE | 2021-02-23 06:33 | NUR ---
RN NOTES Sleeping but arousable, denies pain, no SOB, morning care rendered, call light within reach, bautistaailsupx2, pt. needs attended
--- NOTE | 2021-02-23 07:59 | NUR ---
MS/RN OPENING NOTE RECEIVED PATIENT IN BED. ASLEEP BUT EASILY AROUSABLE. A/O X4. ON ROOM AIR, TOLERATING WELL, NO SOB NOTED. IN NO APPARENT DISTRESS. IV ACCESS ON L NECK #20 G, INTACT. SAFETY MEASURES MAINTAINED. BED IN LOWEST POSITION, BRAKES LOCKED. SIDE RAILS UP X2. CALL LIGHT WITHIN REACH. WILL CONTINUE TO MONITOR PATIENT.
[2021-02-23 08:00] VITALS: BP 114/72
[2021-02-23] MEDS ORDERED: POTASSIUM CHLORIDE 20 MEQ TAB.PRT.SR PO ONE (08:30)
[2021-02-23] MEDS: ASPIRIN 81 MG TAB.CHEW PO SCH (08:50)
[2021-02-23] MEDS: CLOPIDOGREL BISULFATE 75 MG TABLET PO SCH (08:50)
[2021-02-23] MEDS: CHOLECALCIFEROL 1,000 UNIT TABLET (VIT D3) PO SCH (08:50)
[2021-02-23] MEDS: BUMETANIDE (1 MG) 1 MG TABLET PO SCH (08:50)
[2021-02-23] MEDS: ASCORBIC ACID 500 MG TABLET PO SCH (08:51)
[2021-02-23] MEDS: ALLOPURINOL 100 MG TABLET PO SCH (08:51)
[2021-02-23] MEDS: CARVEDILOL 12.5 MG TABLET PO SCH ×2 (08:53→17:44)
[2021-02-23] MEDS: LOSARTAN POTASSIUM 25 MG TABLET PO SCH (08:53)
[2021-02-23] MEDS: SPIRONOLACTONE 25 MG TABLET PO SCH (09:12)
[2021-02-23] MEDS: MULTIVITAMINS,THERAGRAN 1 UDTAB TABLET PO SCH (09:12)
[2021-02-23] MEDS: ZINC SULFATE 220 MG CAPSULE PO SCH (09:12)
[2021-02-23] MEDS: MUPIROCIN OINT 2% 22 GM TUBE NS SCH ×2 (09:15→21:23)
[2021-02-23] MEDS: VANCOMYCIN 0.75 GM in IV D5W 250 ML IV SCH (14:53)
[2021-02-23] MEDS: TRAMADOL HCL 50 MG TABLET PO PRN (14:54)
[2021-02-23 16:00] VITALS: BP 120/64
--- NOTE | 2021-02-23 19:00 | NUR ---
MS/RN CLOSING NOTE PATIENT IN BED AWAKE, A/O X4. ON ROOM AIR, TOLERATING WELL, NO SOB NOTED. IN NO APPARENT DISTRESS. IV ACCESS ON L NECK #20 G, INTACT, CURRENTLY ON SALINE LOCK. PATIENT IS AMBULATORY WITH BRP. WOUND CARE DONE ON BLE ORDERED. BOTH LOWER EXTREMITIES ARE ELEVATED WITH PILLOWS ON BED TO RELIEVE SWELLING. ALL NEEDS ARE MET. SAFETY PRECAUTIONS MAINTAINED THROUGHOUT THE SHIFT. BED IN LOWEST POSITION, BRAKES LOCKED. SIDE RAILS UP X2. CALL LIGHT WITHIN REACH. WILL ENDORSE TO THE NEXT SHIFT FOR CONTINUITY OF CARE.
--- NOTE | 2021-02-23 19:45 | NUR ---
RN NOTES Received pt. awake on bd, a/ox3, bilateral lower extremities cellulitis, denies pain, no SOB, call light within reach, siderailsupx2, continue to monitor
[2021-02-23 20:00] VITALS: BP 97/58
[2021-02-23] MEDS: TRAZODONE 50 MG TABLET PO SCH (21:45)
[2021-02-23] MEDS: ATORVASTATIN 40 MG TABLET PO SCH (21:46)
[2021-02-23] MEDS: MAGNESIUM OXIDE 400 MG TABLET PO SCH (21:46)
[2021-02-23] MEDS: MIRTAZAPINE 15 MG TABLET PO SCH (21:56)
[2021-02-23] MEDS: DOCUSATE SODIUM 100 MG CAPSULE PO SCH (21:56)
[2021-02-24] MEDS: TRAMADOL HCL 50 MG TABLET PO PRN (05:47)
--- NOTE | 2021-02-24 05:47 | NUR ---
RN NOTES Complained of bilateral lower extremities- tramadol 0.25mg po given as ordered, V/S stable
[2021-02-24 06:02] LABS: BASOPHILS % (AUTO) 0.5 % (0.0-2.0); EOSINOPHILS % (AUTO) 1.3 % (0.0-6.0); HEMATOCRIT 36 % (33-45); HEMOGLOBIN 11.5 g/dL (11.5-14.8); LYMPHOCYTES # (AUTO) 1.1 /CMM (0.8-4.8); LYMPHOCYTES % (AUTO) 17.2 % (20.0-44.0); MEAN CORPUSCULAR HGB CONC 32 g/dl (31.0-36.0); MEAN CORPUSCULAR VOLUME 87 fL (82-100); MONOCYTES # (AUTO) 0.7 /CMM (0.1-1.30); MONOCYTES % (AUTO) 11.9 % (2.0-12.0); NEUTROPHILS # (AUTO) 4.3 /CMM (1.8-8.9); NEUTROPHILS % (AUTO) 69.1 % (43.0-81.0); PLATELET COUNT (AUTO) 178 /CMM (150-450); RED BLOOD CELL COUNT(AUTO) 4.11 MIL/uL (4.0-5.2); WHITE BLOOD COUNT (AUTO) 6.3 K/uL (4.3-11.0)
[2021-02-24 06:11] LABS: CALCIUM, SERUM 9.1 mg/dL (8.5-10.1); CREATININE 1.6 mg/dL (0.6-1.3); POTASSIUM 3.5 mmol/L (3.5-5.1)
--- NOTE | 2021-02-24 06:44 | NUR ---
RN NOTES sleeping but arousable, denies pain, no SOB, call light within reach, morning care rendered, rolfupx2, pt. needs attended
--- NOTE | 2021-02-24 07:10 | NUR ---
MS RN OPENING NOTE RECEIVED PATIENT SLEEPING IN BED. EASILY AWAKENED. A/O X 3. ON ROOM AIR, TOLERATING WELL. NO SOB NOTED. NO S/S OF RESPIRATORY DISTRESS. NO REPORTS OF PAIN OR DISCOMFORT AT THIS TIME. IV ACCESS ON L IJ #20 G, INTACT AND PATENT. BOTH LEGS KEPT ELEVATED. SAFETY MEASURES MAINTAINED. BED IN LOWEST POSITION, BRAKES LOCKED. SIDE RAILS UP X2. CALL LIGHT WITHIN REACH. WILL CONTINUE PLAN OF CARE.
[2021-02-24] MEDS: BLOOD SUGAR DIAGNOSTIC 1 EACH STRIP VI SCH ×4 (07:12→22:09)
[2021-02-24 08:00] VITALS: BP 91/59
[2021-02-24] MEDS: CLOPIDOGREL BISULFATE 75 MG TABLET PO SCH (08:28)
[2021-02-24] MEDS: MUPIROCIN OINT 2% 22 GM TUBE NS SCH ×2 (08:28→21:58)
[2021-02-24] MEDS: ASCORBIC ACID 500 MG TABLET PO SCH (08:29)
[2021-02-24] MEDS: ASPIRIN 81 MG TAB.CHEW PO SCH (08:29)
[2021-02-24] MEDS: CHOLECALCIFEROL 1,000 UNIT TABLET (VIT D3) PO SCH (08:29)
[2021-02-24] MEDS: ALLOPURINOL 100 MG TABLET PO SCH (08:29)
[2021-02-24] MEDS: SPIRONOLACTONE 25 MG TABLET PO SCH (08:31)
[2021-02-24] MEDS: MULTIVITAMINS,THERAGRAN 1 UDTAB TABLET PO SCH (08:31)
[2021-02-24] MEDS: CARVEDILOL 12.5 MG TABLET PO SCH ×2 (08:31→16:43)
[2021-02-24] MEDS: ZINC SULFATE 220 MG CAPSULE PO SCH (08:31)
[2021-02-24] MEDS: LOSARTAN POTASSIUM 25 MG TABLET PO SCH (08:32)
[2021-02-24] MEDS: acetaZOLAMIDE SODIUM 500 MG/VIAL VIAL IV SCH ×2 (09:47→16:43)
[2021-02-24] MEDS ORDERED: GABA-532 PO (10:50)
[2021-02-24] MEDS: INSULIN REGULAR, HUMAN 100 UNIT/ML 3 ML VIAL SQ PRN ×2 (11:54→16:44)
[2021-02-24] MEDS: VANCOMYCIN 0.75 GM in IV D5W 250 ML IV SCH (15:05)
[2021-02-24 16:00] VITALS: BP 100/54
--- NOTE | 2021-02-24 18:09 | NUR ---
MS RN CLOSING NOTE PATIENT RESTING IN BED. A/O X4. ON ROOM AIR, TOLERATING WELL. NO SOB NOTED. NO S/S OF RESPIRATORY DISTRESS. NO REPORTS OF PAIN OR DISCOMFORT AT THIS TIME. IV ACCESS ON L IJ #22 G, INTACT AND PATENT. BLOOD SUGAR OF 140, 2 UNITS OF INSULIN GIVEN PER COVERAGE. BOTH LEGS STILL KEPT ELEVATED. ALL DUE MEDS GIVEN ORDERED. ALL NEEDS HAVE BEEN MET AND ATTENDED. SAFETY MEASURES MAINTAINED. BED IN LOWEST POSITION, BRAKES LOCKED. SIDE RAILS UP X2. CALL LIGHT WITHIN REACH. WILL ENDORSE CONTINUITY OF CARE TO ONCOMING SHIFT.
--- NOTE | 2021-02-24 19:37 | NUR ---
MS RN OPENING NOTES PATIENT A/OX3 ABLE TO MAKE NEEDS KNOWN. TOLERATING ROOM AIR WELL WITH NO SOB. L IJ #20G S/; PATENT AND INTACT. B FEET ELEVATED. SAFETY MEASURES IN PLACE: BED IN LOWEST LOCKED POSITION, SIDE RAILS UPX2, CALL LIGHT WITHIN EASY REACH. PATIENT IN STABLE CONDITION, WILL CONTINUE PLAN OF CARE.
[2021-02-24 20:00] VITALS: BP 100/67
[2021-02-24] MEDS: DOCUSATE SODIUM 100 MG CAPSULE PO SCH ×3 (22:00→22:24)
[2021-02-24] MEDS: MIRTAZAPINE 15 MG TABLET PO SCH ×3 (22:00→22:23)
[2021-02-24] MEDS: *INSULIN REGULAR(HUMULIN R)HUM 100 UNIT/ML VIAL SQ PRN (22:07)
[2021-02-24] MEDS: ATORVASTATIN 40 MG TABLET PO SCH (22:08)
[2021-02-24] MEDS: MAGNESIUM OXIDE 400 MG TABLET PO SCH (22:08)
[2021-02-24] MEDS: TRAZODONE 50 MG TABLET PO SCH (22:09)
--- NOTE | 2021-02-25 04:00 | NUR ---
MS RN NOTES WOUND TREATMENT DONE ORDERED. PATIENT DENIES PAIN OR DISCOMFORT.
[2021-02-25 06:16] LABS: CALCIUM, SERUM 9.1 mg/dL (8.5-10.1); CREATININE 1.6 mg/dL (0.6-1.3)
--- NOTE | 2021-02-25 06:18 | NUR ---
MS RN CLOSING NOTE PATIENT IN BED. A/OX4 ABLE TO MAKE NEEDS KNOWN. TOLERATING ROOM AIR WELL WITH NO SOB. L IJ #20G S/L; PATENT AND INTACT. BLE TREATMENT C/D/I AND ELEVATED. SAFETY MEASURES IN PLACE: BED IN LOWEST LOCKED POSITION, SIDE RAILS UPX2, CALL LIGHT WITHIN EASY REACH. PATIENT IN STABLE CONDITION, WILL ENDORSE PLAN OF CARE TO ONCOMING MORNING RN.
[2021-02-25] MEDS: BLOOD SUGAR DIAGNOSTIC 1 EACH STRIP VI SCH ×2 (06:30→11:02)
[2021-02-25] MEDS: INSULIN REGULAR, HUMAN 100 UNIT/ML 3 ML VIAL SQ PRN ×2 (06:30→11:04)
--- NOTE | 2021-02-25 07:10 | NUR ---
MS RN OPENING NOTE RECEIVED PATIENT SLEEPING IN BED. A/O X 4. ON ROOM AIR, TOLERATING WELL. NO SOB NOTED. IN NO APPARENT DISTRESS. DENIES ANY PAIN OR DISCOMFORT AT THIS TIME. IV ACCESS ON L IJ #20 G, INTACT AND PATENT. BOTH LEGS KEPT ELEVATED. SAFETY MEASURES MAINTAINED. BED IN LOWEST POSITION, BRAKES LOCKED. SIDE RAILS UP X2. CALL LIGHT WITHIN REACH. WILL CONTINUE PLAN OF CARE.
--- NOTE | 2021-02-25 07:11 | NUR ---
MS RN NOTE - POTASSIUM VASILIY FROM LAB REPORTED CRITICAL LAB: POTASSIUM 2.7. DOCUMENTED IN CRITICAL LABS INTERVENTION. WILL ENDORSE TO MORNING SHIFT RN
[2021-02-25 07:12] LABS: POTASSIUM 2.7 mmol/L (3.5-5.1)
[2021-02-25 08:00] VITALS: BP 105/57
[2021-02-25] MEDS: ASPIRIN 81 MG TAB.CHEW PO SCH (08:25)
[2021-02-25] MEDS: ALLOPURINOL 100 MG TABLET PO SCH (08:25)
[2021-02-25] MEDS: MULTIVITAMINS,THERAGRAN 1 UDTAB TABLET PO SCH (08:25)
[2021-02-25] MEDS: ZINC SULFATE 220 MG CAPSULE PO SCH (08:25)
[2021-02-25] MEDS: SPIRONOLACTONE 25 MG TABLET PO SCH (08:25)
[2021-02-25] MEDS: CHOLECALCIFEROL 1,000 UNIT TABLET (VIT D3) PO SCH (08:25)
[2021-02-25] MEDS: ASCORBIC ACID 500 MG TABLET PO SCH (08:25)
[2021-02-25] MEDS: CARVEDILOL 12.5 MG TABLET PO SCH (08:26)
[2021-02-25] MEDS: MUPIROCIN OINT 2% 22 GM TUBE NS SCH (08:27)
[2021-02-25] MEDS: CLOPIDOGREL BISULFATE 75 MG TABLET PO SCH (08:27)
[2021-02-25] MEDS: LOSARTAN POTASSIUM 25 MG TABLET PO SCH (08:27)
[2021-02-25] MEDS: acetaZOLAMIDE SODIUM 500 MG/VIAL VIAL IV SCH (08:30)
[2021-02-25] MEDS: POTASSIUM CHLORIDE 20 MEQ TAB.PRT.SR PO SCH ×5 (09:56→14:11)
[2021-02-25 16:00] VITALS: BP 104/60
--- NOTE | 2021-02-25 17:30 | NUR ---
MS RN NOTE PATIENT DISCHARGED. HEALTH TEACHING AND DISCHARGE INSTRUCTIONS GIVEN. PT. VERBALIZED UNDERSTANDING. ACCOMPANIED PT DOWNSTAIRS VIA WHEELCHAIR. PICKED UP BY PRIVATE CAR FROM [facility]. REMOVED IV LINE AND WRISTBANDS. BELONGINGS HANDED TO THE PT. BP 107/62 OK 77 RR 20 T 97.9 SA02 96%
== END 2021-02-25 17:20 | DRG 194 ==
LOC: ER 11:32 → TELE1 14:34 → MEDSG1 02-17 06:22 → MED 02-22 06:04
PROVIDERS: ADMIT Nurse Practitioner Acute Care
DX: I13.0 Hypertensive heart and chronic kidney disease with heart failure and stage 1 through stage 4 chronic kidney disease, or unspecified chronic kidney disease (principal); N17.9 Acute kidney failure, unspecified; D68.59 Other primary thrombophilia; E44.0 Moderate protein-calorie malnutrition; E11.22 Type 2 diabetes mellitus with diabetic chronic kidney disease; E11.42 Type 2 diabetes mellitus with diabetic polyneuropathy; E87.2 Acidosis; E11.51 Type 2 diabetes mellitus with diabetic peripheral angiopathy without gangrene; I48.91 Unspecified atrial fibrillation; E83.42 Hypomagnesemia; E87.1 Hypo-osmolality and hyponatremia; L03.115 Cellulitis of right lower limb; L03.116 Cellulitis of left lower limb; G89.4 Chronic pain syndrome; Z79.82 Long term (current) use of aspirin; B19.20 Unspecified viral hepatitis C without hepatic coma; I50.43 Acute on chronic combined systolic (congestive) and diastolic (congestive) heart failure; G47.33 Obstructive sleep apnea (adult) (pediatric); I42.9 Cardiomyopathy, unspecified; E66.01 Morbid (severe) obesity due to excess calories; E78.5 Hyperlipidemia, unspecified; I25.10 Atherosclerotic heart disease of native coronary artery without angina pectoris; I87.309 Chronic venous hypertension (idiopathic) without complications of unspecified lower extremity; Z20.822 Contact with and (suspected) exposure to COVID-19; Z68.38 Body mass index [BMI] 38.0-38.9, adult; E79.0 Hyperuricemia without signs of inflammatory arthritis and tophaceous disease; Z88.0 Allergy status to penicillin; Z88.2 Allergy status to sulfonamides; I87.323 Chronic venous hypertension (idiopathic) with inflammation of bilateral lower extremity; Z79.4 Long term (current) use of insulin; N18.9 Chronic kidney disease, unspecified; J44.9 Chronic obstructive pulmonary disease, unspecified; Z95.0 Presence of cardiac pacemaker; Z95.5 Presence of coronary angioplasty implant and graft
CPT/HCPCS: 36415; 71045-TC; 80048-TC; 80053-TC; 80061-TC; 80202-TC; 82962-TC; 83735-TC; 83880; 84100-TC; 84300-TC; 84443-TC; 84484-TC; 84550-TC; 85025-TC; 87081-TC; 93307-TC; 93970-TC; 97116-TC; 97530-TC; A6253; A6403; G0378; J1120; J1815; J1940; J3370; J3475; J3490; J7050; J7060; U0003

== ENCOUNTER 2021-11-14 04:30 | Emergency (ER) | payer OTHER ==
[~2021-11-14] VITALS: Ht 162.6 cm; Wt 63.5 kg
[~2021-11-14 04:30] MED LIST: AMIN887L PO; ASCO500C17 PO; ASPI-1169 PO; ATOR80TA PO; BIOT1CAP3 PO; BISA10SU11 RC; CALC-853 PO; CARV12.5 PO; CHOL200013 PO; CLOP75TA15 PO; CRAN425C6 PO; CYAN-51 PO; DOCU-141 PO; GABA-532 PO; INSU100V3 IJ; LOSA25TA27 PO; MIRT-121 PO; MULT-447 PO; NA P133E RC; OMEG1CAP55 PO; SPIR25TA6 PO; TRAM50TA2 PO; ZINC220C6 PO
--- NOTE | 2021-11-14 04:37 | NUR ---
ERIN FROM HOME C/O BILATERAL LEG PAIN. FOUND AT HOME BY SON COVERED IN 2 WEEKS WORTH OF FECAL MATTER. PATIENT ALERT AND ORIENTED X3. BROUGHT IN BY STRETCHER.
[2021-11-14] MEDS ORDERED: MORPHINE SULFATE INJ 2 MG/ML DISP.SYRIN IV ONE (05:00)
[2021-11-14] MEDS ORDERED: VANCOMYCIN 1 GM in IV D5W 250 ML IV ONE (05:00)
[2021-11-14] MEDS ORDERED: CEFEPIME 1 GM in IV D5W 50 ML IV ONE (05:00)
[2021-11-14] MEDS ORDERED: MORPHINE SULFATE INJ 4 MG/ML DISP.SYRIN ONE (05:09)
[2021-11-14] MEDS ORDERED: VANCOMYCIN 1 GM VIAL ONE (05:09)
[2021-11-14] MEDS ORDERED: CEFEPIME 1 GM VIAL ONE (05:09)
--- NOTE | 2021-11-14 05:18 | NUR ---
BLOOD COLLECTED AND SENT TO LAB
--- NOTE | 2021-11-14 05:32 | NUR ---
ep technologist at bedside
[2021-11-14 05:41] LABS: BASOPHILS % (AUTO) 0.1 % (0.0-2.0); EOSINOPHILS % (AUTO) 0.1 % (0.0-6.0); HEMATOCRIT 51 % (33-45); HEMOGLOBIN 16.9 g/dL (11.5-14.8); LYMPHOCYTES # (AUTO) 0.4 K/uL (0.8-4.8); LYMPHOCYTES % (AUTO) 2.7 % (20.0-44.0); MEAN CORPUSCULAR HGB CONC 33 g/dl (31.0-36.0); MEAN CORPUSCULAR VOLUME 93 fL (82-100); MONOCYTES # (AUTO) 0.2 K/uL (0.1-1.30); MONOCYTES % (AUTO) 1.5 % (2.0-12.0); NEUTROPHILS # (AUTO) 15.2 K/uL (1.8-8.9); NEUTROPHILS % (AUTO) 95.6 % (43.0-81.0); PLATELET COUNT (AUTO) 191 K/uL (150-450); RED BLOOD CELL COUNT(AUTO) 5.54 MIL/uL (4.0-5.2); WHITE BLOOD COUNT (AUTO) 15.9 K/uL (4.3-11.0)
--- NOTE | 2021-11-14 06:00 | NUR ---
MRSA SWAB COLLECTED AND SENT TO LAB. PATIENT'S BELONGINGS LIST DONE.
--- NOTE | 2021-11-14 06:39 | NUR ---
16FR FRAZIER CATHETER INSERTED WITH 300ML CHANDRAKANT OUTPUT. URINE SAMPLE COLLECTED AND SENT TO LAB.
[2021-11-14 07:26] LABS: BILIRUBIN,URINE LARGE (NEGATIVE); COLOR,URINE YELLOW (YELLOW); LEUKOCYTE ESTERASE ,URINE TRACE (NEGATIVE); NITRITE, URINE POSITIVE (NEGATIVE); PROTEIN,URINE 30 mg/dl (NEGATIVE); UGLUCOSE NEGATIVE (NEGATIVE)
--- NOTE | 2021-11-14 07:28 | NUR ---
SPOKE TO MACHINE FARMWORKER FROM [facility]. THEY WILL BE WORKING ON TRANSFERRING HER TO [facility] AND WILL BE ARRANGING TRANSPORT. CALL BACK NUMBER [phone]
--- NOTE | 2021-11-14 07:46 | NUR ---
GOING TO [facility] ACCEPTED BY DR LOUIE # FOR REPORT, ETA: 60-90 MINS ETA [facility]
--- NOTE | 2021-11-14 07:50 | NUR ---
GOING TO ROOM 122.A [facility].
[2021-11-14 08:07] LABS: BACTERIA,URINE Moderate /HPF (None Seen); SQUAMOUS EPITHELIAL CELL,UR Many /HPF (None Seen)
[2021-11-14] MEDS ORDERED: IV NS 0.9% 500 ML BAG IV ONE (08:30)
[2021-11-14 09:57] LABS: SODIUM SERUM 129 mmol/L (136-145)
[2021-11-14 09:58] LABS: GLUCOSE 77 mg/dL (74-106)
[2021-11-14 09:59] LABS: ALANINE AMINOTRANSFERASE 58 U/L (12-78); ALKALINE PHOSPHATASE 305 U/L (46-116); ASPARTATE AMINOTRANSFERASE 111 U/L (15-37); BILIRUBIN,DIRECT 7.6 mg/dL (0.0-0.2); BILIRUBIN,TOTAL 9.2 mg/dL (0.2-1.0)
[2021-11-14 10:00] LABS: CALCIUM, SERUM 10.1 mg/dL (8.5-10.1); CREATININE 1.3 mg/dL (0.6-1.3); UREA NITROGEN, BLOOD 45 mg/dL (7-18)
[2021-11-14 10:08] LABS: CARBON DIOXIDE 26 mmol/L (21-32); CHLORIDE 93 mmol/L (98-107); POTASSIUM 6.6 mmol/L (3.5-5.1)
[2021-11-14 10:09] LABS: TOTAL PROTEIN, SERUM 7.3 g/dL (6.4-8.2)
[2021-11-14] MEDS ORDERED: Calcium Gluconate 1GM/10ML 4.65 MEQ in IV D5W 50 ML IV ONE (10:30)
[2021-11-14] MEDS ORDERED: INSULIN REGULAR, HUMAN 100 UNIT/ML 10 ML VIAL IV ONE (10:30)
[2021-11-14] MEDS ORDERED: DEXTROSE 50%-WATER 50 ML DISP.SYRIN IVP ONE (10:30)
[2021-11-14] MEDS ORDERED: SODIUM BICARBONATE SYR 50 MEQ/50 ML DISP.SYRIN IV ONE (10:30)
--- NOTE | 2021-11-14 10:35 | NUR ---
REPORT GIVEN TO FABIANO DANIELS FOR RAJI.
[2021-11-14] MEDS ORDERED: DEXTROSE 50%-WATER 50 ML DISP.SYRIN ONE (10:37)
[2021-11-14] MEDS ORDERED: SODIUM BICARBONATE SYR 50 MEQ/50 ML DISP.SYRIN ONE (10:37)
[2021-11-14] MEDS ORDERED: IOHEXOL-350 100 ML VIAL IV ONE (10:50)
[2021-11-14] MEDS ORDERED: IV NS 0.9% 250 ML IV ONE (10:50)
[2021-11-14 11:44] VITALS: BP 129/81
--- NOTE | 2021-11-14 12:00 | NUR ---
REPORT GIVEN TO PENCILS WASHER, PT ELBA TRANSPORTED TO [facility]
== END 2021-11-14 12:06 | disposition short-term general hospital (02) ==
LOC: ER 04:30
DX: A41.9 Sepsis, unspecified organism (principal); R62.7 Adult failure to thrive; Z68.24 Body mass index [BMI] 24.0-24.9, adult; E11.51 Type 2 diabetes mellitus with diabetic peripheral angiopathy without gangrene; Z88.6 Allergy status to analgesic agent; Z88.0 Allergy status to penicillin; Z88.2 Allergy status to sulfonamides; Z79.4 Long term (current) use of insulin; Z79.02 Long term (current) use of antithrombotics/antiplatelets; Z20.822 Contact with and (suspected) exposure to COVID-19; B88.9 Infestation, unspecified; E87.1 Hypo-osmolality and hyponatremia; E87.5 Hyperkalemia; E87.2 Acidosis; L97.829 Non-pressure chronic ulcer of other part of left lower leg with unspecified severity; L97.819 Non-pressure chronic ulcer of other part of right lower leg with unspecified severity; I11.0 Hypertensive heart disease with heart failure; I50.9 Heart failure, unspecified
CPT/HCPCS: 36415; 51702; 71045; 75635; 76705; 80048; 80076; 81001; 83605; 83880; 84145; 84484; 85025; 85730; 87040 ×2; 87070; 87077; 87081; 87086; 87186 ×3; 87426; 93005 ×2; 93308; 93925; 96365; 96367; 96375 ×2; 99291; C9803; J0610; J0692 ×2; J2270; J3370; J3490; J7040; J7050; J7060 ×2; Q9967